=== PATIENT | male | born 1935 | race Caucasian/White ===

== ENCOUNTER 2021-11-07 15:08 | Outpatient (CLI) | payer MEDICARE, BC | END 2021-11-07 15:09 | disposition home or self-care (01) | LOC: CSHULT 15:08 | PROVIDERS: ATTEND Internal Medicine | DX: N28.9 Disorder of kidney and ureter, unspecified (principal); N28.1 Cyst of kidney, acquired; N20.0 Calculus of kidney | CPT/HCPCS: 76770 ==